=== PATIENT | female | born 1980 | race American Indian/Alaskan Native ===

== ENCOUNTER 2017-05-12 20:21 | Emergency (ER) | payer MEDICAID ==
[2017-05-12 21:11] LABS: INR 1.04 (0.87-1.13)
[2017-05-12 21:12] LABS: Basophils % (Auto) 0.9 % (0.0-1.8); Eosinophils % (Auto) 1.3 % (0.0-4.3); Hematocrit 35.3 % (30.3-42.9); Hemoglobin 11.4 gm/dl (10.1-14.3); Mean Corpuscular HGB Conc 32 % (30-34); Mean Corpuscular Volume 80 fl (79-97); Partial Thromboplastin Time 26.7 Sec. (24.2-36.6); Platelet Count 400 K/mm3 (140-440); Red Blood Count 4.44 M/mm3 (3.65-5.03); Red Cell Distribution Width 16.1 % (13.2-15.2); White Blood Count 5.6 K/mm3 (4.5-11.0)
[2017-05-12 21:13] LABS: Mean Corpuscular Hemoglobin 26 pg (28-32)
[2017-05-12 21:21] LABS: Anion Gap 18 mmol/L; BUN/Creatinine Ratio 15.71; Blood Urea Nitrogen 11 mg/dL (7-17); Calcium 8.9 mg/dL (8.4-10.2); Carbon Dioxide 25 mmol/L (22-30); Chloride 100.2 mmol/L (98-107); Glucose 98 mg/dL (65-100); Potassium 3.8 mmol/L (3.6-5.0); Sodium 139 mmol/L (137-145)
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
--- NOTE | 2017-05-13 04:35 | Cat Scan Report ---
FINAL REPORT PROCEDURE: CT HEAD/BRAIN WO CON TECHNIQUE: Computerized tomography of the head was performed without contrast material. HISTORY: neuro deficits \T\lt; 6hrs or sx present upon awakening COMPARISON: No prior studies are available for comparison. FINDINGS: Skull and scalp: Normal. Paranasal sinuses: Normal. Ventricles and subarachnoid spaces: Normal. Cerebrum: No evidence of hemorrhage, acute infarction or mass . Cerebellum and brainstem: No evidence of hemorrhage, acute infarction or mass. Vasculature: Normal. Comments: None. IMPRESSION: Normal Examination
[2017-05-13 04:48] VITALS: BP 92/50
== END 2017-05-13 05:23 | disposition home or self-care (01) ==
LOC: ED 20:21
DX: R20.0 Anesthesia of skin (principal); R55 Syncope and collapse; J45.909 Unspecified asthma, uncomplicated
CPT/HCPCS: 36415; 70450; 80048; 84484; 84703; 85025; 85610; 85670; 85730; 93005; 93010; 99284

== ENCOUNTER 2017-07-17 23:46 | Emergency (ER) | payer OTHER, MEDICAID ==
[2017-07-18 00:38] VITALS: BP 112/72
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
--- NOTE | 2017-07-18 02:56 | XRay Report ---
FINAL REPORT EXAM: XR KNEE 1-2V RT HISTORY: injury and pain TECHNIQUE: Two views of the right knee were submitted. FINDINGS: There are no skeletal or soft tissue abnormalities. IMPRESSION: Normal exam.
--- NOTE | 2017-07-18 02:57 | XRay Report ---
FINAL REPORT EXAM: XR FEMUR 2+V RT HISTORY: injury and pain TECHNIQUE: Four views of the right femur were submitted. FINDINGS: There are no skeletal or soft tissue abnormalities. IMPRESSION: Negative exam.
--- NOTE | 2017-07-18 02:59 | XRay Report ---
FINAL REPORT EXAM: XR SPINE LUMBOSACRAL 2-3V HISTORY: injury and pain TECHNIQUE: Three views of the lumbar spine were submitted. FINDINGS: There is a thoracolumbar dextroscoliosis. The disc heights and alignment otherwise well maintained. The soft tissues are unremarkable. IMPRESSION: Thoracolumbar dextroscoliosis. No acute injury.
[2017-07-18] MEDS ORDERED: TORADOL ONE (03:00)
--- NOTE | 2017-07-18 03:03 | XRay Report ---
FINAL REPORT EXAM: XR SPINE THORACIC 2V HISTORY: injury and pain TECHNIQUE: AP and lateral views of the thoracic spine were submitted. FINDINGS: There is a dextroscoliosis of the thoracolumbar junction. The disc heights and alignment otherwise appear normal. There is no evidence of fracture. The soft tissues are well maintained. IMPRESSION: Thoracolumbar dextroscoliosis. No acute injury.
--- NOTE | 2017-07-18 03:03 | XRay Report ---
FINAL REPORT EXAM: XR SPINE CERVICAL 2-3V HISTORY: injury and pain TECHNIQUE: Three views of the cervical spine were submitted. FINDINGS: There is moderate narrowing of the C5-C6 disc with endplate spurring. Overall alignment is normal. The prevertebral soft tissues and C1-C2 articulation appear intact. IMPRESSION: Moderate arthritic changes of the C5-C6 disc. No acute injury
[2017-07-18] MEDS: TORADOL IM ONE (03:04)
[2017-07-18] MEDS: FLEXERIL PO ONE ×2 (03:12→03:14)
== END 2017-07-18 03:14 | disposition home or self-care (01) ==
LOC: ED 23:46
DX: M54.9 Dorsalgia, unspecified (principal); V49.49XA Driver injured in collision with other motor vehicles in traffic accident, initial encounter; Y93.9 Activity, unspecified; Y92.9 Unspecified place or not applicable; Y99.9 Unspecified external cause status; J45.909 Unspecified asthma, uncomplicated
CPT/HCPCS: 72040; 72070; 72100; 73552; 73560; 96372; 99283; J1885